=== PATIENT | female | born 1990 | race American Indian/Alaskan Native ===

== ENCOUNTER → 2018-01-02 | Outpatient (CLI) | payer OTHER ==
[~2018-01-02] VITALS: Ht 152.4 cm; Wt 67.1 kg
[~2018-01-02] MED LIST: AMOX1TAB12 PO; FLONASE16 GM NS; GILTUSS TR TAB1 EACH PO; MACROBID 100 M100 MG PO; PROVENTIL3 ML/2.5 M IH; TOBREX5 ML OP; ZANTAC300 MG; ZANTAC300 MG PO; ZITHROMAX500 MG PO; ZOFRAN4 MG; ZOFRAN4 MG PO; ZYRTEC10 MG PO
== END | disposition home or self-care (01) ==
LOC: PPHC 16:56
DX: G43.809 Other migraine, not intractable, without status migrainosus (principal)

== ENCOUNTER 2019-01-29 16:30 | Outpatient (CLI) | payer OTHER | END 2019-01-29 16:34 | disposition home or self-care (01) | LOC: LAB 16:30 | DX: J20.0 Acute bronchitis due to Mycoplasma pneumoniae (principal) ==